=== PATIENT | female | born 1965 | race Caucasian/White ===

== ENCOUNTER 2016-08-15 14:44 | Emergency (ER) | payer OTHER ==
[2016-08-15] MEDS ORDERED: BUPIVACAINE 0.5% 30 ML VIAL INF ONE (14:54)
[2016-08-15 15:02] VITALS: BMI 27.4
[2016-08-15 15:05] VITALS: BP 115/70; PULSE 92; TEMP 97.9
--- NOTE | 2016-08-15 15:43 | DIRPT ---
CLINICAL DATA: Crushing injury to the tip of the fifth digit. EXAM: LEFT FINGER(S) - 2+ VIEW COMPARISON: None. FINDINGS: There is no evidence of fracture or dislocation. There is no evidence of arthropathy or other focal bone abnormality. Soft tissues defect is seen at the very tip of the fifth digit. IMPRESSION: No evidence of fracture or subluxation. Soft tissue injury. Electronically Signed By: Cisco Gonzalez M.D. On: 08/15/2016 15:40
--- NOTE | 2016-08-15 15:50 | EDPRACDOC ---
- General Information Chief Complaint: Wound Information Source: Patient Mode of Arrival:: Car Home Medications: Home Medications Cholecalciferol (Vitamin D3) [Vitamin D3 (cholecalciferol)] 2,000 units PO DAILY 01/04/13 Esomeprazole Mag Trihydrate [Nexium] 40 mg PO BID 01/04/13 Potassium Gluconate [Potassium] 99 mg PO DAILY 01/04/13 Biotin 2,500 mcg PO DAILY 03/13/14 Gabapentin [Neurontin] 100 mg PO TID 03/13/14 Levothyroxine Sodium [Synthroid] 50 mcg PO QAM 03/13/14 Escitalopram Oxalate [Lexapro] 20 mg PO DAILY 08/27/15 Furosemide [Lasix] 20 mg PO BID 08/27/15 Hydrocodone Bit/Acetaminophen [T[place]aco 10-325 Tablet] 1 tab PO QID PRN 08/27/15 Hydrocodone Bit/Acetaminophen [[place]aco 5-325 Tablet] 1 each PO Q4H #10 tab Sulfamethoxazole/Trimethoprim [Bactrim Ds Tablet] 1 tab PO BID #20 tab 08/15/16 Allergies/Adverse Reactions: Allergies Allergy/AdvReac Type Severity Reaction Status Date / Time morphine Allergy Unknown Hypotension Verified 08/27/15 15:11 Penicillins Allergy Unknown HIVES Verified 08/27/15 15:11 adhesive Allergy Hives* Verified 08/27/15 15:11 - History of Present Illness Onset: [employer] HPI: PT STATES WAS WORKING WITH [employer] AND CUT THE END OF HER LEFT 5TH FINGER TIP. PT STATES CAN STILL MOVE IT AND IS HURTING A LOT. - Tetanus Status Last Tetanus: Yes (January 2013) - Pain Pain Severity: Moderate Bleeding: Reports: Controlled Associated Signs & Symptoms: Reports: None ED Past Medical History - History Reviewed Yes Nurses notes reviewed and agree except as marked Travel Outside of [place] in the Last 3 Months?: No - Patient Medical History Respiratory History: Reports: Asthma (HX CHILD) GI/ History: Reports: Gastroesophageal Reflux Musculoskeletal History: Reports: Gout, Osteoarthritis Psychological History: Denies: Depression Systemic History: Reports: Anemia (HX). Denies: Cancer Surgical History: Reports: Hysterectomy, Tonsillectomy/Adnoidectomy - Family Medical History Reports: Hypertension (DAD), Diabetes (DAD), Cancer (DAD), Cardiac Disorders ( DAD). Denies: Stroke - Social Medical History Smoking Status: Heavy tobacco smoker (5 or more cigarettes/day or daily pipe/ cigar) ETOH: None Substance Abuse: None Lives With: Spouse Lives In: Home EDM Review of Systems - Review of Systems ROS Negative Except as Marked: Yes All systems reviewed and were negative except as marked Constitutional: No Symptoms Reported. negative: Fever, Chills, Weakness, Fatigue, Loss of Appetite Eyes: No Symptoms Reported. negative: Redness, Blurred Vision, Double Vision, Discharge, Pain, Light Sensitive, Photophobia Ears: No Symptoms Reported. negative: Pain, Hearing Loss, Drainage, Ear Pulling Throat: No Symptoms Reported. negative: Pain, Swelling Nose: No Symptoms Reported. negative: Congestion, Bleeding, Discharge, Injection, Swelling, Deformity, Ecchymosis, Tender, Abrasion, Laceration Mouth: No Symptoms Reported. negative: Pain, Drooling Respiratory: No Symptoms Reported. negative: Cough, Brassy Cough, Barky Cough, Shortness of Breath, Wheezing, Hemoptysis Cardiovascular: No Symptoms Reported. negative: Chest Pain, Palpitations, Syncope, Edema, Orthopnea, PND, Skin Mottling, Cyanosis Gastrointestinal: No Symptoms Reported. negative: Pain, Constipation, Nausea, Vomiting, Diarrhea, Melena, Formula Intolerance Genitourinary: No Symptoms Reported. negative: Dysuria, Hematuria, Frequency, Discharge, Bleeding, Testicular Pain, Neurological: No Symptoms Reported. negative: Headache, Dizziness, Seizure, Numbness, Weakness, Speech Difficulty, Gait Difficulty Musculoskeletal: No Symptoms Reported. negative: Neck, Chestwall, Ribs, Back, Shoulder, Arm, Elbow, Forearm, Wrist, Hand, Pelvis, Hip, Femur, Knee, Leg, Ankle , Foot Integumentary: Other (LAC TO LEFT 5TH FINGER TIP). negative: Bruising, Itching , Rash, Wound Allergic/Immunologic: No Symptoms Reported. negative: Hives, Itching Hematologic: No Symptoms Reported. negative: Lymphadenopathy, Easy Bruising, Easy Bleeding Endocrine: No Symptoms Reported. negative: Weight Gain, Weight Loss Psychiatric: No Symptoms Reported. negative: Anxiety, Depression, Hallucinations, Insomnia, Suicidal - Physical Exam Constitutional: No apparent distress, Alert (Awake) Oriented to: Time, Person, Place Last recorded Vital Signs: Last Vital Signs Temp 97.9 F 08/15/16 15:01 Pulse 92 08/15/16 15:01 Resp 18 08/15/16 15:01 BP 115/70 08/15/16 15:01 Pulse Ox 97 08/15/16 15:01 Oxygen Pulse Oxygen Saturation 97 O2 Device Oxygen Flow Rate Fraction of Inspired Oxygen ( FIO2) - HEENT Head: Normal ( normocephalic) Eye Exam: Normal (PERRL, EOMI, Sclera white) Oropharynx: Normal (Pharynx:Moist without exudate,Gums-no swelling) Tympanic Membrane: Normal ENT EAC: Normal TMJ: Normal Nose: No Symptoms Reported (septum midline) Neck: Normal (FROM, trachea at midline) - Respiratory/Cardiovascular Respiratory: Normal - CTA (BBS clear to auscultation without adventitious sounds ) Cardiovascular: Normal (RRR without murmur, gallop or rub) - GI Auscultation: Normal (NABS) Palpation: Normal (Soft,No rebound or guarding, non distended) Tenderness: Non tender Ahmadi's Sign: Negative - Bladder: Normal - Musculoskeletal Back: Normal (Non-Tender) Extremities: Normal (Normal tone, Pulses 2+ No cyanosis or edema, FROM) - Integumentary Skin: Normal, Warm, Dry Lymphatics: Normal (no adenopathy) Integumentary Comment: LEFT 5TH DIGIT WITH JAGGED AVULSION LACERATION. PT HAS FULL ROM AND IS NVI CAP REFILL <2SEC. - Neurologic Memory Impaired: Normal Motor Function: Normal (Normal tone, Pulses 2+ No cyanosis or edema, FROM) Cranial Nerve: Normal (CN II-X11 intact sensation, strength 5/5) Cerebellar: Normal Mood Description: Normal Thought: Coherent Perception: Normal ED Procedures - Suture/Laceration LT 5TH FINGER Wound Length (cm): 1 Wound's Depth, Shape: superficial Wound Explored: contaminated Irrigated w/ Saline (ccs): 50. SALINE AND BETADINE Betadine Prep?: Yes Anesthesia: 0.5% Sensorcaine Volume Anesthetic (ccs): 8 Wound Margins: Flaps aligned Wound Repaired With: Sutures Suture Size/Type: 6:0, prolene Number of Sutures: 2 Layer Closure?: No Sterile Dressing Applied?: Yes Splint Applied?: No Sling Applied?: No - Nerve Block Procedure Prep: Betadine Site: LEFT 5TH DIGIT Injection Name and Amount: BUPIVACAINE 0.5% 8CC Note/Adverse events: BLEEDING CONTROLLED, PAIN WAS RELIEVED AFTER BLOCK. PT TOLERATED WELL. - Differential Diagnosis Avulsion, Contusion, Laceration - Diagnostic Imaging FINGERS Image interpreted by: Radiologist NO ACUTE FRACTURE OR SUBLUXATION, SOFT TISSUE INJURY Decision Time to Discharge: 16:18 - Departure Disposition: Home Condition: Stable Final Diagnosis: Laceration - injury Instructions: Laceration (ED) Education/Counseling Given To: Patient, Family Member Education/Counseling Given Regarding: Diagnosis, Treatment, Prognosis, Follow Up Referrals: Scott Smith MD [Primary Care Provider] - One Week Prescriptions: Sulfamethoxazole/Trimethoprim [Bactrim Ds Tablet] 1 tab PO BID #20 tab Additional Instructions: SUTURES OUT IN 5 DAYS. RETURN FOR WORSE OR DIFFERENT SYMPTOMS. KEEP CLEAN AND DRY FOR 36HRS THEN WASH WITH SOAP AND WATER.
== END 2016-08-15 16:25 | disposition home or self-care (01) ==
LOC: EDMC 14:44
DX: S61.217A Laceration without foreign body of left little finger without damage to nail, initial encounter (principal); W45.8XXA Other foreign body or object entering through skin, initial encounter; Y93.89 Activity, other specified
CPT/HCPCS: 12001; 73140; 99282; J3490